=== PATIENT | female | born 1945 | race African-American/Black ===

== ENCOUNTER → 2018-09-22 | Outpatient (CLI) | payer OTHER ==
[~2018-09-22] MED LIST: CARTIA XT240 M1 PO; COLCRYS0.6 MG PO; HYDROCODON-ACE1 EAC7 PO; LANOXIN 0.120.125 M1 PO; LIPITOR 20 MG T20 M1 PO; LISINOPRIL20 MG PO; LOPRESSOR50 PO; PRADAXA150 MG PO
== END ==
LOC: CAT 14:24
DX: I25.10 Atherosclerotic heart disease of native coronary artery without angina pectoris (principal); J90 Pleural effusion, not elsewhere classified; I51.7 Cardiomegaly; K76.9 Liver disease, unspecified; I70.0 Atherosclerosis of aorta; R91.8 Other nonspecific abnormal finding of lung field; J98.4 Other disorders of lung; N28.1 Cyst of kidney, acquired; Z90.49 Acquired absence of other specified parts of digestive tract

== ENCOUNTER → 2018-10-24 | Outpatient (CLI) | payer OTHER | LOC: NUC 10:03 → RAD 10:03 | DX: I11.9 Hypertensive heart disease without heart failure (principal); J96.11 Chronic respiratory failure with hypoxia; I27.20 Pulmonary hypertension, unspecified; I48.91 Unspecified atrial fibrillation ==

== ENCOUNTER → 2018-11-14 | Outpatient (CLI) | payer OTHER ==
[~2018-11-14] VITALS: Ht 160 cm; Wt 90.3 kg
[~2018-11-14] MED LIST changes: +ALLOPURINOL 10100 M1 PO; +DILTIAZEM 24HR360 M1 PO; +K-DUR10 MEQ PO; +LASIX 40 MG TAB40 M2 PO; +LOSARTAN POTAS100 MG PO; +METOPROLOL SUCC50 MG PO; +TRAMADOL 50 MG50 MG PO; +VENTOLIN HFA 1818 GM INH
[2018-11-14 07:31] VITALS: BP 153/97
--- NOTE | 2018-11-14 09:23 | EKG ---
[place] [address] [facility] [place] [address] ELECTROCARDIOGRAM REPORT Name: MIHAIARMANDO Room #: [facility]#: [id number] ������������������ Admission: 11/14/18 ������������������ Attend Phys: Barney Cespedes MD, Discharge: ������������������ Date of : 45 Report #: [id number] ����������������������������������������������������������������� [id number] THIS REPORT FOR: //name// [facility] Test Date: 2018-11-14 Test Time: 07:21:05 Pat Name: ARMANDO HOLM Department: Room: Gender: F Channel Rebuilder: Thony MCPHERSON : 1945 Requested By: Barney Cespedes Order Number: [id number] MD: Barney Cespedes Measurements Intervals [place] Rate: 78 P: CT: QRS: 50 QRSD: 124 T: 232 QT: 375 QTc: 428 Interpretive Statements Atrial fibrillation Right bundle branch block ST segment abnormality No previous ECG available for comparison Electronically Signed On 11-14-2018 9:23:18 CDT by Barney Cespedes [email or web address] ��������������������������������������������� <ELECTRONICALLY SIGNED> ���������������������������������������� By: Barney Cespedes MD, [facility] ��������������������������������������������� 11/14/18 0923 0721 0 Barney Cespedes MD, FACC /EPI
--- NOTE | 2018-11-14 17:08 | CATHLAB ---
[facility] [place] [address] INVASIVE PROCEDURE REPORT Name: MIHAIARMANDO Room #: REG CL [facility]#: [id number] ������������� Admission: 11/14/18 ������������� Attend Phys: Barney Cespedes, Discharge: ��� ������������� ��� Date of : 45 Date of Service: 11/14/18 1708 �� Report #: [id number] �������� ��������������������������������������������[id number] THIS REPORT FOR: //name// APPROVED REPORT Study performed: 11/14/2018 07:44:01 Patient Details Patient Status: Out-Patient Room #: The patient is a 73 year-old female Event Personnel Barney Cespedes Flosser, Toni Carrington RN, Keily Alatorre RTR, BORIS Rodgers, Sanket Zavala Monitor, Norma Ugalde coal digger Performed Right and Left Heart Cath w/or w/o Coronarie [id number] [facility] Indication Chest pain Procedure Narrative The Right Groin^ was infiltrated with 1% Lidocaine subcutaneous anesthesia. A Right Heart Catheterization was performed with a 7 Fr. [place]-Jhony catheter and pressure were recorded. Cardiac outputs were obtained by the Thermal Dilution method. A PINNACLE 6FR Sheath #[id number] sheath was inserted into the RFA^. Coronary angiography was performed using coronary diagnostic catheters. The right coronary system was accessed and visualized with a JR4 catheter. The left coronary system was accessed and visualized with a JL4 catheter. The left ventricle was accessed and visualized with a PIGTAIL catheter. Left ventriculogram was performed in HARDY projection. Closure device was deployed with a Fr MYNXGRIP 6/7F #[id number]. Hemostasis was obtained with manual pressure following sheath removal without any complications. The patient tolerated the procedure well and there were no complications associated with the procedure. There was no hematoma. Intraoperative Conscious Sedation Sedation start time: 811 Case end Time: 841 Versed 1 mg [facility] [employer] [address] INVASIVE PROCEDURE REPORT Name: ARMANDO HOLM [facility] [id number] ������������� Admission: 11/14/18 ������������� Attend Phys: Barney Cespedes, Discharge: ��� ������������� ��� Date of : 45 Date of Service: 11/14/18 1708 �� Report #: [id number] �������� ��������������������������������������������[id number] Fluoro Time: 4.57 minutes Dose: DAP 6723.00 cGycm2 574 mGy Contrast Type and Amount: Omnipaque 115 ml Coronary Angiography The patient's coronary anatomy is right dominant. Diagnostic Cath Left Main Normal left main LAD Mild 20% plaquing in the proximal portion of the mid LAD Diagonal 1 Single, moderately large diagonal branch, angiographically normal Circumflex Large single marginal branch, angiographically normal Right Coronary Dominant right coronary, angiographically normal R PDA Large posterior descending branch, angiographically normal RPLV Large bifurcating posterolateral branch, angiographically normal. Left Ventriculography The left ventricle is normal in size with normal contractility. The left ventricular ejection fraction is estimated to be 60-65%. Left ventricular wall motion abnormalities are not present. There is no mitral insufficiency. Hemodynamics The right atrial mean pressure is 22 mmHg. The right ventricular pressure is 110/6 mmHg. The pulmonary artery pressure is 104/43 mmHg with a mean of 63 mmHg. The mean pulmonary capillary wedge pressure is 22 mmHg. The aortic pressure is 152/60 mmHg with a mean of 100 mmHg. The left ventricular pressure is 133/15 mmHg with a mean of mmHg. The left ventricular end diastolic pressure is 25 mmHg. The cardiac output using thermo method is 3.30 L/min. The cardiac index using thermo method is 1.71 L/min/m2. Conclusion 1. Normal global and regional left ventricular systolic function. Ejection fraction 65% 2. Normal left main [facility] [address] [place] [address] INVASIVE PROCEDURE REPORT Name: ADRIANA HOLMMARLA Charlene Room #: REG CL [facility]#: [id number] ������������� Admission: 11/14/18 ������������� Attend Phys: Barney Cespedes, Discharge: ��� ������������� ��� Date of : 45 Date of Service: 11/14/181707 �� Report #: [id number] �������� ��������������������������������������������[id number] 3. Minimal LAD plaquing, otherwise normal coronary vasculature 4. Severe pulmonary hypertension, normal filling pressures ��������������������������������������������� <ELECTRONICALLY SIGNED> ���������������������������������������� By: Barney Cespedes MD, [facility] ��������������������������������������������� [id number] 07 07 Barney Cespedes MD, [facility] /INF
== END | disposition home or self-care (01) ==
LOC: CATH 06:36
DX: I25.10 Atherosclerotic heart disease of native coronary artery without angina pectoris (principal); I27.20 Pulmonary hypertension, unspecified; I10 Essential (primary) hypertension; I48.91 Unspecified atrial fibrillation; I11.0 Hypertensive heart disease with heart failure; I50.9 Heart failure, unspecified; I42.9 Cardiomyopathy, unspecified; E78.5 Hyperlipidemia, unspecified; Z98.890 Other specified postprocedural states; Z90.49 Acquired absence of other specified parts of digestive tract; Z79.01 Long term (current) use of anticoagulants; E66.09 Other obesity due to excess calories

== ENCOUNTER 2018-11-16 13:01 | Inpatient (IN) | payer OTHER ==
[~2018-11-16] VITALS: Ht 160 cm; Wt 82.0 kg
[2018-11-16 13:28] VITALS: BP 150/87
[2018-11-16 15:17] LABS: ABSOLUTE NEUTROPHILS 9.5 thou/uL (1.4-8.2); BASOPHILS 0.4 % (0.0-2.0); EOSINOPHILS 0.3 % (0.0-3.0); HEMOGLOBIN 13.8 gm/dL (12.0-15.0); LYMPHOCYTES 9.5 % (24.0-44.0); MCH 29.9 pg (26.0-34.0); MCHC 31.4 g/dL (28.0-37.0); MCV 95.3 fL (80.0-100.0); MONOCYTES 6.5 % (1.0-8.0); PLATELET COUNT 167 thou/uL (150-400); POLYS 83.3 % (36.0-66.0); RBC 4.62 mil/uL (4.20-5.00); RDW 16.2 % (10.5-14.5); WBC 11.5 thou/uL (4.0-11.0)
[2018-11-16 15:33] LABS: ALBUMIN 3.1 g/dL (3.4-5.0); CALCIUM 9.3 mg/dL (8.5-10.1); CREATININE 0.9 mg/dL (0.6-1.0); MAGNESIUM 1.4 mg/dL (1.8-2.4); POTASSIUM 3.6 mmol/L (3.5-5.1); TOTAL PROTEIN 6.8 g/dL (6.4-8.2)
--- NOTE | 2018-11-16 15:40 | NUR ---
PT A DIRECT ADMIT FROM DR. WHITING OFFICE. ADMISSION HX AND ASSESSMENT COMPLETED. VSS. PT ALERT AND ORIENTED. VSS. PT ALERT AND ORIENTED. DENIED HAVING PAIN. DR. JACKSON NOTIFIED. ORDERS NOTED. WILL CONTINUE TO MONITOR.
[2018-11-16 16:33] LABS: URINE BILIRUBIN NEGATIVE (Negative); URINE BLOOD NEGATIVE (Negative); URINE CLARITY CLEAR; URINE COLOR YELLOW; URINE GLUCOSE-RANDOM* NEGATIVE (Negative); URINE KETONES NEGATIVE (Negative); URINE NITRITE-REFLEX NEGATIVE (Negative); URINE PROTEIN (DIPSTICK) NEGATIVE (Negative); URINE SPECIFIC GRAVITY 1.015 (1.005-1.035); URINE UROBILINOGEN 0.2 E.U./dl (0.2-1.0)
[2018-11-16 16:38] LABS: URINE LEUKOCYTES-REFLEX 1+ (Negative)
[2018-11-16 16:47] LABS: BACTERIA-REFLEX 1-9 Few /HPF (None Seen); CASTS None Seen /LPF (None Seen); CRYSTALS None Seen /LPF (None Seen); SQUAMOUS 4-10 Moderate /LPF (0-3); URINE RBC None Seen /HPF (0-2); URINE WBC-REFLEX 6-15 Few /HPF (0-5)
[2018-11-16 19:51] LABS: BE(vivo) 1.7 mmol/L (-2 to +3); HCO3 24.6 mmol/L (22.0-26.0); PCO2 33.5 mmHg (35.0-45.0); PO2 60.2 mmHg (80.0-100.0); pH 7.484 (7.360-7.450)
[2018-11-16 20:02] VITALS: BP 130/54
[2018-11-17 00:01] VITALS: BP 151/96
[2018-11-17 03:43] VITALS: BP 141/85
--- NOTE | 2018-11-17 04:22 | NUR ---
ASSUMED PT'S CARE AT 1910; PT. ON CHAIR DURING REPORT; AOX4; DURING FIRST ASSESSMENT NO C/O PAIN; ST. ABLE TO WALK INDEPENDENTLY AT HOME; SOB WITH EXERTION; O2 SAT ON THE 96'S ON 8L NC; AROUND 2200 PT C/O SOB DUE TO BIPAP SETTINGS; O2 SAT 100%; RT. CALLED; DURING RE-ASSESSMENT PT. ST FEELING BETTER; C/O HEADACHE; PRN PAIN MEDICATION GIVEN; ST. FEELING ANXIOUS DUE TO BEING IN THE HOSPITAL; ABLE TO REST WITH EYES CLOSE AFTER MIDNIGHT; HR ON THE 60'S- 70'S; WILL KEEP MONITORING; ASSESSMENT CHARGED; FOLLOWING POC; WILL PASS ON REPORT.
[2018-11-17 07:40] VITALS: BP 128/62
[2018-11-17 10:38] LABS: HEMATOCRIT 42.2 % (37.0-47.0); HEMOGLOBIN 13.9 gm/dL (12.0-15.0); MCH 30.9 pg (26.0-34.0); MCHC 32.8 g/dL (28.0-37.0); MCV 94.1 fL (80.0-100.0); PLATELET COUNT 185 thou/uL (150-400); RBC 4.48 mil/uL (4.20-5.00); RDW 16.1 % (10.5-14.5)
[2018-11-17 10:45] LABS: CALCIUM 9.4 mg/dL (8.5-10.1); CREATININE 1.2 mg/dL (0.6-1.0); MAGNESIUM 1.5 mg/dL (1.8-2.4); POTASSIUM 3.7 mmol/L (3.5-5.1)
[2018-11-17 11:50] VITALS: BP 129/70
[2018-11-17 14:06] LABS: ABSOLUTE NEUTROPHILS 11.4 thou/uL (1.4-8.2)
[2018-11-17 14:07] LABS: ANISOCYTOSIS 1+
[2018-11-17 15:35] VITALS: BP 122/62
--- NOTE | 2018-11-17 17:12 | NUR ---
PT ADMITTED RELATED TO PULMONARY HTN. CM REVIEWED CHART AND SPOKE WITH CARE TEAM. CM MET WITH PT AT BEDSIDE THIS DAY. PT IS A&O X4. CM ROLE INTRODUCED. PT INDIATED SHE HAD BEEN LIVING IN A HOUSE ALONE LEGAL ASSISTANT WITH 12 STEPS TO ENTER WITH A LANDING. PT INDICATED SHE HAD BEEN INDEPDENENT WITH GAIT AND ADLS LEGAL ASSISTANT. PT INDICATED NO HH OR OP THERAPY HISTORY. PT INDICATED SHE HAS HOME O2 THROUGH [facility] AT 7L AT REST AND 8L WITH ACTIVITY LEGAL ASSISTANT. PT ALSO HAS A BIPAP WITH O2 THAT SHE USES AT NIGHT. PT'S PCP IS DR. RENY SIM. PT INDICATED THAT SHE PLANS TO RETURN HOME ONCE MEDICALLY STABLE. CM TO FOLLOW INDICATED WITH DC PLANNING. DR. WHITING HAD MENTIONED SENDING REFERRAL FOR PULMONARY HYPERTENSION CLINIC UPON DISCHARGE.
--- NOTE | 2018-11-17 18:19 | NUR ---
PT CARE ASSUMED APPROX 0700. PT ALERT AND ORIENTED X4. DENIES PAIN AND SOA DESPITE PERIODS OF DESATTING. PT AWARE OF NEED TO TAKE BREAKS WHEN DOING ADLs AND AMBULATING. PT IS SAFE TO BE INDEPENDENT IN ROOM PER P/T. VSS AT THIS ITME. PT'S DAUGHTER CALLED AND RECEIVED CLINICAL UPDATE. PT AND DAUGHTER DENY QUESTIONS OR CONCERNS REGARDING POC. PT TOLERATING SILDENAFIL ADDED TO POC. NO DISTRESS NOTED.
[2018-11-17 19:57] VITALS: BP 105/51
[2018-11-18] VITALS (7 sets, daily range): BP systolic 117–144; BP diastolic 49–91
--- NOTE | 2018-11-18 03:59 | NUR ---
RECEIVED PT'S CARE AT 1900; PT. ON CHAIR; AOX4; RELATIVE IN THE ROOM DURING SHIFT CHANGE; DURING ASSESSMENT NO C/O PAIN; LUNG SOUNDS DISMINISHED CLEAR; HR ON THE 50'S-40'S AFTER HS MEDICATION; NO C/O HEADACHES; DIZZINESS OR SOB; ABLE TO REST THROUGH THE NIGHT WITH EYES CLOSE; BIPAP AT BED TIME; ASSESSMENT CHARGED; FOLLOWING POC; WILL PASS ON REPORT.
[2018-11-18 05:21] LABS: HEMOGLOBIN 13.8 gm/dL (12.0-15.0); MCH 31.6 pg (26.0-34.0); MCHC 32.9 g/dL (28.0-37.0); RBC 4.37 mil/uL (4.20-5.00); RDW 16.1 % (10.5-14.5); WBC 10.6 thou/uL (4.0-11.0)
[2018-11-18 05:32] LABS: POTASSIUM 3.4 mmol/L (3.5-5.1)
[2018-11-18 08:53] LABS: URINE BILIRUBIN NEGATIVE (Negative); URINE BLOOD TRACE (Negative); URINE CLARITY SL CLOUDY; URINE COLOR YELLOW; URINE GLUCOSE-RANDOM* NEGATIVE (Negative); URINE KETONES NEGATIVE (Negative); URINE LEUKOCYTES 2+ (Negative); URINE NITRITE NEGATIVE (Negative); URINE PROTEIN (DIPSTICK) 1+ (Negative); URINE SPECIFIC GRAVITY 1.025 (1.005-1.035); URINE UROBILINOGEN 0.2 E.U./dl (0.2-1.0)
[2018-11-18 09:11] LABS: AMORPHOUS URATES Moderate /LPF (None Seen); CASTS None Seen /LPF (None Seen); SQUAMOUS >10 Many /LPF (0-3); URINE RBC None Seen /HPF (0-2); URINE WBC 6-15 Few /HPF (0-5); YEAST Present (None Seen)
--- NOTE | 2018-11-18 11:43 | NUR ---
ASSUMED CARE AT SHIFT CHANGE, ALERT AND ORIENTED X4. VSS AND AFIB ON THE MONITOR. STEADY GAIT. DENIES ANY COMPLAINT OR DISCOMFORT AT THIS TIME. PROGRESSING TOWARDS GOALS AND WILL CONTINUE WITH POC.
[2018-11-19] VITALS (7 sets, daily range): BP systolic 110–130; BP diastolic 50–92
[2018-11-19 05:24] LABS: CALCIUM 8.9 mg/dL (8.5-10.1); POTASSIUM 3.5 mmol/L (3.5-5.1)
--- NOTE | 2018-11-19 05:36 | NUR ---
RECIVED PT'S CARE AT 1910; PT. ON BED; AOX4; DURING ASSESSMENT PT. C/O PAIN OVER R. GROIN AREA WHERE LAST Tuesday11/14/18 HAD AN OUTPATIENT CARDIAC CATH; ST. CATH NURSE EDUCATED ABOUT GOING TO THE ER IF NOTICE ANY GROWING OR HAVING INCREASE PAIN ; DURING ASSESSMENT PT. HAD HARD AREA OF ABOUT 3CM OVER R. GROING AREA; PRESSURE IMMEDIATELY APPLIED FOR 25 MIN; NO CHANGE; VS WNL; PULSE 2/1; SUPERVISOR SOLDER MAKING NOTIFIED; SUPERVISOR SOLDER MAKING ARRIVED AND ASSESSED PT; AFTER ASSESSMENT VERBAL ORDERS GIVEN; PER ORDER PT. ABLE TO AMBULATE FOR THE REST OF THE NIGHT; PT. EDUCATED ABOUT CALLING IMMEDIATELY IF ANY CHANGES NOTICED; ST. UNDERSTANDING; ABLE TO REST THROUGH THE NIGHT WITH EYES CLOSE; PAIN RE-ASSESSMENT PT. SLEEPING; NO C/O PAIN OR CHANGES OVER R. GROIN AREA DURING 399 ASSESSMENT; WILL KEEP MONITRING; ASSESSMENT CHARGED FOLLOWING POC; WILL PASS ON REPORT.
[2018-11-19 09:39] LABS: CALCIUM 9.4 mg/dL (8.5-10.1); CREATININE 1.2 mg/dL (0.6-1.0); POTASSIUM 3.2 mmol/L (3.5-5.1)
--- NOTE | 2018-11-19 19:10 | NUR ---
ASSUMED CARE AT SHIFT CHANGE, ALERT AND ORIENTED X4. DENIES ANY DISCOMFORT. VSS AND CONTROLLED AFIB ON THE MONITOR. PROGRESSING TOWARD GOALS. AND WILL CONTINUE WITH POC.
[2018-11-20 05:13] LABS: HEMATOCRIT 38.6 % (37.0-47.0); HEMOGLOBIN 12.6 gm/dL (12.0-15.0); MCH 30.9 pg (26.0-34.0); MCHC 32.7 g/dL (28.0-37.0); MCV 94.5 fL (80.0-100.0); RBC 4.09 mil/uL (4.20-5.00); RDW 15.8 % (10.5-14.5); WBC 10.5 thou/uL (4.0-11.0)
[2018-11-20 05:25] LABS: CALCIUM 8.7 mg/dL (8.5-10.1); POTASSIUM 3.9 mmol/L (3.5-5.1)
[2018-11-20 05:48] VITALS: BP 135/65
[2018-11-20 08:10] VITALS: BP 128/59
--- NOTE | 2018-11-20 10:47 | NUR ---
Assumed pt care around 0930 in stable condition.Pt up with assist to bathroom with o2 at 5lnc.Svetlana rn has given pt am meds with breakfast prior given report to this rn.Pt has soa with exertion.O2 increase to 8l with activities. Chair and bed alarm in use for safety.Pt will possibly dc home later today. No c/o soa or any discomfort.Will continue to monitor.
[2018-11-20 12:30] VITALS: BP 103/58
[2018-11-20] MEDS ORDERED: COLACE100 MG PO (12:54)
[2018-11-20] MEDS ORDERED: SILDENAFIL20 MG PO (12:54)
[2018-11-20 13:15] VITALS: BP 128/59
--- NOTE | 2018-11-20 16:47 | NUR ---
rec request to inquire into coverage for viagra for pulmonary hypertension. Faxed script to [facility] [address] were patient rec her scripts. Pharmacist ran script and reports it will need prior auth. Pharmancist reports when filled they will submit script. It will be denied and they will start prior auth with phys office for documentation of need for medication. Pharmacist reports she submitted a discount card to patient and initially for 30 day supply its $32 out of pocket. Pharmacists reports could be a few days working to obtain prior auth. Updated Dr Barba and Nisha who are agreeable for dc with 30 day supply and cont to obtain auth for medication on outpatient basis. Updated patient who is in agreement.
== END 2018-11-20 15:05 | disposition home or self-care (01) | DRG 291 ==
LOC: 2N 13:01 → ENTRNSPT 11-20 14:39 → EDTRNSPTSTS 11-20 14:53 → 2N 11-20 15:05
PROVIDERS: Internal Medicine Pulmonary Disease; Nurse Practitioner; ADMIT Hospitalist
PROC: 5A09357 Assistance with Respiratory Ventilation, Less than 24 Consecutive Hours, Continuous Positive Airway Pressure (ICD-10-PCS; principal; 2018-11-16)
PROC: 5A09357 Assistance with Respiratory Ventilation, Less than 24 Consecutive Hours, Continuous Positive Airway Pressure (ICD-10-PCS; 2018-11-17)
PROC: 5A09357 Assistance with Respiratory Ventilation, Less than 24 Consecutive Hours, Continuous Positive Airway Pressure (ICD-10-PCS; 2018-11-18)
PROC: 5A09357 Assistance with Respiratory Ventilation, Less than 24 Consecutive Hours, Continuous Positive Airway Pressure (ICD-10-PCS; 2018-11-19)
PROC: 5A09357 Assistance with Respiratory Ventilation, Less than 24 Consecutive Hours, Continuous Positive Airway Pressure (ICD-10-PCS; 2018-11-20)
DX: I11.0 Hypertensive heart disease with heart failure (principal); J96.21 Acute and chronic respiratory failure with hypoxia; N17.9 Acute kidney failure, unspecified; I50.33 Acute on chronic diastolic (congestive) heart failure; I27.20 Pulmonary hypertension, unspecified; G47.33 Obstructive sleep apnea (adult) (pediatric); E83.42 Hypomagnesemia; M10.9 Gout, unspecified; I48.91 Unspecified atrial fibrillation; E78.5 Hyperlipidemia, unspecified; Z79.01 Long term (current) use of anticoagulants; Z88.6 Allergy status to analgesic agent; Z90.49 Acquired absence of other specified parts of digestive tract; Z79.899 Other long term (current) drug therapy; Z79.51 Long term (current) use of inhaled steroids
CPT/HCPCS: 10081; 10797